=== PATIENT | male | born 1965 | race Caucasian/White ===

== ENCOUNTER 2020-12-30 23:07 | Observation (INO) | payer OTHER ==
[~2020-12-30] VITALS: Ht 177.8 cm; Wt 79.4 kg
[2020-12-31 00:55] LABS: HEMOGLOBIN 14.3 gm/dl (14.0-17.5); RED BLOOD COUNT 4.67 M/UL (4.20-5.50); WHITE BLOOD COUNT 6.5 K/UL (4.5-11.0)
[2020-12-31 01:00] LABS: BUN/CREATININE RATIO 15 (0-10)
[2020-12-31] MEDS ORDERED: PROTONIX 40 MG40 M1 PO (15:09)
[2020-12-31] MEDS ORDERED: ASPIRIN EC81 MG PO (15:09)
[2020-12-31] MEDS ORDERED: LIPITOR20 MG PO (15:10)
== END 2020-12-31 15:52 | disposition other institution (70) ==
LOC: ER1 23:07 → CDU 12-31 04:02 → MED SURG 4 12-31 04:02
PROVIDERS: Family Medicine; ADMIT Internal Medicine
DX: R07.89 Other chest pain (principal); F17.210 Nicotine dependence, cigarettes, uncomplicated; Z82.49 Family history of ischemic heart disease and other diseases of the circulatory system; R00.1 Bradycardia, unspecified; Z20.822 Contact with and (suspected) exposure to COVID-19; I07.1 Rheumatic tricuspid insufficiency; Z88.1 Allergy status to other antibiotic agents
CPT/HCPCS: ECHO; 36415; 71045; 80053; 80061; 82550; 82553; 83036; 83690; 83874; 84439; 84443; 84484; 85025; 93005; 93306; 96372; 96374; 99285; G0378; J1650; J1885; U0002

== ENCOUNTER → 2021-11-08 | Outpatient (CLI) | payer OTHER ==
[~2021-11-08] MED LIST: ASPIRIN EC81 MG PO; LIPITOR20 MG PO; PROTONIX 40 MG40 M1 PO
== END ==
LOC: HEART 5 11:00
DX: R07.89 Other chest pain (principal)